=== PATIENT | female | born 2000 | race African-American/Black ===

== ENCOUNTER → 2019-01-21 | Outpatient (CLI) | payer OTHER ==
--- NOTE | 2019-01-21 16:11 | REP ---
Focused left breast sonography: History: Left breast lump. 1 cm palpable mass in the left lateral breast region. Present for 1 year, growing in size. Findings: Scanning in the area of the palpable lump at approximately 2 o'clock in the left breast demonstrates a 2.1 x 0.6 x 1.6 cm hypoechoic oval shaped lesion with its long axis parallel to the skin located 2.4 cm from the nipple. It appears to have a echogenic linear hilar architecture suggesting a hypertrophied lymph node. It is not a simple cyst. Impression: 2.1 x 0.6 x 1.6 cm oval-shaped solid lesion at the palpable lump. This does not meet criteria of a simple cyst. Given the history that it is growing, a needle biopsy should be considered. This could be done with sonographic guidance if desired . BIRADS category is felt to be best assigned as category four suspicious left breast sonography. This patient's estimated Tyrer-Cuzick lifetime risk assessment for the breast cancer is 12.3 %. Electronically Signed by Froy Wood MD 01/21/2019 04:19 P
== END ==
LOC: M RAD 12:08
PROVIDERS: ATTEND Physician Assistant Medical
DX: N63.20 Unspecified lump in the left breast, unspecified quadrant (principal)

== ENCOUNTER → 2019-02-08 | Outpatient (CLI) | payer OTHER ==
[~2019-02-08] MED LIST: LIDOCAINE 1% MDV 20ML VIAL As Ordered ONE
[2019-02-08 11:27] VITALS: BP 101/64
--- NOTE | 2019-02-09 09:38 | REP ---
Ultrasound-guided left breast biopsy. The procedure was performed by AUSTYN Guerra, under the direct supervision of Dr. Castañeda. The patient has a history of a 2.1 x 0.6 x 1.6 cm oval shaped solid lesion at the palpable lump palpable on an ultrasound dated 01/21/2019. The risks and benefits of the procedure were explained to the patient and informed consent was obtained both verbally and written. Directly prior to the start of the procedure, a formal timeout was completed in the procedure room. The left breast mass was localized using ultrasound guidance. The skin was prepped and draped in a sterile fashion. 10 ml of 1% lidocaine was used as a local anesthetic. Using ultrasound guidance a 13-gauge suction assisted Mammotome needle was inserted and 3 core biopsy samples were obtained. A marker clip was placed at the biopsy site. The patient tolerated the procedure well and there was post biopsy bleeding. 10 minutes of pressure was held, and the area was reevaluated with ultrasound, that did not demonstrate a hematoma. After the appropriate monitored convalescence the patient was discharged from the department. Reviewed by AUSTYN Lala 02/08/2019 12:36 P Electronically Signed by Shaheed Castañeda MD 02/09/2019 09:29 A
== END ==
LOC: M IRPRO 10:16
DX: N63.20 Unspecified lump in the left breast, unspecified quadrant (principal)